=== PATIENT | female | born 1985 | race Caucasian/White ===

== ENCOUNTER 2018-02-19 15:45 | Emergency (ER) | payer OTHER ==
[~2018-02-19] VITALS: Ht 167.6 cm; Wt 84.4 kg
[2018-02-19] MEDS ORDERED: ASPIRIN81 MG PO (15:59)
[2018-02-19] MEDS ORDERED: PRENATAL VITAM1 EAC8 PO (16:00)
[2018-02-19] MEDS ORDERED: LEVOTHYROXINE150 MCG PO (16:01)
[2018-02-19] MEDS ORDERED: PROMETHAZINE HC25 M1 PO (18:01)
== END 2018-02-19 18:23 | disposition home or self-care (01) ==
LOC: ED 15:45
DX: O21.9 Vomiting of pregnancy, unspecified (principal); Z3A.08 8 weeks gestation of pregnancy; O99.341 Other mental disorders complicating pregnancy, first trimester; F41.9 Anxiety disorder, unspecified; Z79.82 Long term (current) use of aspirin; Z79.899 Other long term (current) drug therapy
CPT/HCPCS: 80053; 81001; 85025; 96361; 96374; 99284-25; J2550; J7030

== ENCOUNTER 2018-03-01 07:51 | Emergency (ER) | payer OTHER ==
[~2018-03-01] VITALS: Ht 167.6 cm; Wt 84.4 kg
[~2018-03-01 07:51] MED LIST: ASPIRIN81 MG PO; LEVOTHYROXINE150 MCG PO; PRENATAL VITAM1 EAC8 PO; PROMETHAZINE HC25 M1 PO
--- OUTSIDE RECORDS SUMMARY | 2018-03-01 07:56 | XMS ---
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 Lorena has no Care Guidelines for this patient. [facility] (12 MO.) [facility] NOTE: Visits indicate total known visits. ED/C VISIT TRACKING (12 MO.) [facility] COMPLAINT: - VAGINAL BLEEDING,9 WKS PREG 02/19/2018 15:[address] 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
== END 2018-03-01 09:08 | disposition home or self-care (01) ==
LOC: ED 07:51
DX: O46.91 Antepartum hemorrhage, unspecified, first trimester (principal); F41.9 Anxiety disorder, unspecified; E06.3 Autoimmune thyroiditis; Z79.899 Other long term (current) drug therapy; Z79.82 Long term (current) use of aspirin; Z3A.09 9 weeks gestation of pregnancy
CPT/HCPCS: 76801; 81001; 84702; 84703; 85025; 99284